=== PATIENT | male | born 1985 | race Caucasian/White ===

== ENCOUNTER 2018-01-22 17:06 | Emergency (ER) | payer OTHER ==
[~2018-01-22] VITALS: Ht 175.3 cm; Wt 83.3 kg
[2018-01-22] MEDS ORDERED: SODIUM CHLORIDE FLUSH 10ML SYR IVF ONE (18:00)
[2018-01-22 18:18] VITALS: BP 121/71
[2018-01-22] MEDS ORDERED: OMNIPAQUE 350 MG/ML, 100ML BOTTLE ONE (18:28)
[2018-01-22 18:40] LABS: MICROSCOPIC NOT IND
[2018-01-22 18:49] LABS: CULTURE INDICATED? NO
== END 2018-01-22 19:36 | disposition home or self-care (01) ==
LOC: ED 19:00
DX: R10.84 Generalized abdominal pain (principal); R11.2 Nausea with vomiting, unspecified; R19.7 Diarrhea, unspecified; E86.0 Dehydration; F17.200 Nicotine dependence, unspecified, uncomplicated
CPT/HCPCS: 74177; 81003; 99285; Q9967